=== PATIENT | male | born 1965 | race African-American/Black ===

== ENCOUNTER → 2020-07-25 | Outpatient (CLI) | payer OTHER ==
[~2020-07-25] MED LIST: ALLO100T PO; AMLO-187 PO; IRON15TA3 PO; LACT1CAP6 PO; MELA5TAB20 PO; ROSU5TAB8 PO; VITA1TAB19 PO
== END ==
LOC: LAB 08:20
PROVIDERS: ATTEND Nurse Anesthetist, Certified Registered
DX: Z01.812 Encounter for preprocedural laboratory examination (principal); Z20.828 Contact with and (suspected) exposure to other viral communicable diseases; Z12.11 Encounter for screening for malignant neoplasm of colon
CPT/HCPCS: U0003

== ENCOUNTER → 2020-07-28 | Day surgery (SDC) | payer OTHER ==
[~2020-07-28] MED LIST changes: +IPRATRPIUM/ALBUTEROL 0.5/2.5MG 3 ML NEBU. NEB PRN; +IV RINGERS SOLUTION,LACTATED 1,000 ML IV SCH; +LIDOCAINE 2% PF 5 ML VIAL. ONE; +MIDAZOLAM HCL PF 2 MG/2 ML VIAL. IV ONE; +ONDANSETRON PF 4 MG/2 ML VIAL. IV PRN; +PROPOFOL 10,000 MCG/ML (20ML) VIAL IV ONE
[2020-07-28 09:29] VITALS: BP 140/73
== END | disposition home or self-care (01) ==
LOC: SURG 07:05
PROVIDERS: ATTEND Internal Medicine Gastroenterology
DX: Z12.11 Encounter for screening for malignant neoplasm of colon (principal); D12.4 Benign neoplasm of descending colon; K63.89 Other specified diseases of intestine; Z79.899 Other long term (current) drug therapy; Z72.89 Other problems related to lifestyle; Z88.8 Allergy status to other drugs, medicaments and biological substances
CPT/HCPCS: 45385; 88305; J2001; J2704; J7120

== ENCOUNTER → 2020-11-04 | Outpatient (CLI) | payer OTHER ==
[2020-07-28 09:29] VITALS: BP 140/73
[~2020-11-04] MED LIST changes: -IPRATRPIUM/ALBUTEROL 0.5/2.5MG 3 ML NEBU. NEB PRN; -IV RINGERS SOLUTION,LACTATED 1,000 ML IV SCH; -LIDOCAINE 2% PF 5 ML VIAL. ONE; -MIDAZOLAM HCL PF 2 MG/2 ML VIAL. IV ONE; -ONDANSETRON PF 4 MG/2 ML VIAL. IV PRN; -PROPOFOL 10,000 MCG/ML (20ML) VIAL IV ONE
--- NOTE | 2020-11-04 15:47 | RAD ---
Examination: 1. Standing bilateral AP knees single view. 2. Right shoulder 3 views. 3. Left and right knee 2 views each. INDICATION: Bilateral knee and right shoulder pain. Findings: Standing AP bilateral knees show minimal medial joint space narrowing bilaterally but no fracture or aggressive osseous lesions and otherwise no significant degenerative changes in the available view. The sunrise and lateral views of the left knee show mild lateral patellar subluxation and minimal ost eophytic spurring of the superior and inferior poles of the patella. The soft tissues are unremarkabl e. [place] and lateral views of the right knee show minimal osteophytic spurring of the superior and inferior poles with no fracture or malalignment or joint effusion. 3 views of the right shoulder show normal alignment and mineralization of the bones of the right shou lder with no acute or aggressive appearing bony lesions. IMPRESSION: 1. 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 No fracture or aggressive bony lesions. 2. Right shoulder shows no significant osseous or soft tissue abnormalities to suggest a cause for ri ght shoulder pain. More detailed evaluation if appropriate could be pursued with MRI or CT arthrograp hy. Electronically signed by: Kika Cheng MD (11/04/2020 3:45 PM) [id number]
== END ==
LOC: RAD 13:46
PROVIDERS: ATTEND Physician Assistant
DX: M17.0 Bilateral primary osteoarthritis of knee (principal); M25.511 Pain in right shoulder
CPT/HCPCS: 73030; 73560; 73565